=== PATIENT | male | born 1990 | race Caucasian/White ===

== ENCOUNTER 2021-09-09 22:38 | Emergency (ER) | payer OTHER ==
[~2021-09-09] VITALS: Ht 172.7 cm; Wt 136.1 kg
[2021-09-09 23:10] VITALS: BP 130/84
--- NOTE | 2021-09-09 23:13 | NUR ---
TO LOBBY A/W BED AMBULATORY
[2021-09-09] MEDS ORDERED: IBUPROFEN 800 MG TAB PO ONE (23:35)
[2021-09-10] MEDS ORDERED: IBUPROFEN 800 MG TAB ONE (00:41)
--- NOTE | 2021-09-10 03:34 | NUR ---
pt eloped without d/c. Dr. Blair made aware.
== END 2021-09-10 03:34 | disposition left against medical advice (07) ==
LOC: MED 22:38
DX: M25.531 Pain in right wrist (principal); M25.562 Pain in left knee; M79.642 Pain in left hand; V89.2XXA Person injured in unspecified motor-vehicle accident, traffic, initial encounter; Y93.89 Activity, other specified; Y92.89 Other specified places as the place of occurrence of the external cause; Y99.8 Other external cause status
CPT/HCPCS: 73110; 73130; 99284